=== PATIENT | female | born 1975 | race Caucasian/White ===

== ENCOUNTER 2020-05-22 09:02 | Outpatient (CLI) | payer BC, SELFPAY ==
--- NOTE | 2020-05-22 09:09 | MM_ITS ---
WS: [id number] BILATERAL SCREENING MAMMOGRAM WITH BJORN DISPLACEMENT VIEWS. CAD PERFORMED. HISTORY: SCREENING COMPARISON: 12/21/2018 12/29/2015 Bilateral craniocaudal and mediolateral like views are performed. Bjorn displacement views in CC and MLO projection also performed. Breasts composition: There are scattered areas of fibroglandular density. Prepectoral implants are i ntact. No capsular contraction. The visualized breast tissue remains normal. No suspicious mass or ca [place]cification. MM/[id number] IMPRESSION: BI-RADS: 2-Benign FOLLOW-UP: 1 Year Follow-up
== END 2020-05-22 09:03 | disposition home or self-care (01) ==
LOC: RADSHAW 09:08
PROVIDERS: PCP Internal Medicine; Visit Provider Internal Medicine
DX: Z12.31 Encounter for screening mammogram for malignant neoplasm of breast (principal)
CPT/HCPCS: 77067

== ENCOUNTER 2022-05-31 08:57 | Outpatient (CLI) | payer BC, SELFPAY ==
--- NOTE | 2022-05-31 09:05 | MM_ITS ---
WS: [id number] BILATERAL SCREENING DIGITAL BREAST MAMMOGRAPHY WITH BJORN DISPLACEMENT VIEWS. CAD PERFORMED. HISTORY: SCREENING COMPARISON: 05/22/2020 and 12/21/2018 Bilateral craniocaudal and mediolateral oblique views are performed with tomosynthesis and SM. Bjorn displacement views in CC and MLO projection also performed. Breasts composition: The breasts are heterogeneously dense, which may obscure small masses. Implants are intact. No extravasation or collapse of the implants. No mass or calcification. MM/[id number] IMPRESSION: BI-RADS: 2-Benign FOLLOW-UP: 1 Year Follow-up
== END 2022-05-31 08:58 | disposition home or self-care (01) ==
LOC: RAD 08:59
PROVIDERS: PCP Family Medicine; Visit Provider Family Medicine
DX: Z12.31 Encounter for screening mammogram for malignant neoplasm of breast (principal)
CPT/HCPCS: 77063; 77067

== ENCOUNTER 2024-07-25 09:00 | Outpatient (CLI) | payer BC, SELFPAY ==
--- NOTE | 2024-07-25 09:02 | MM_ITS ---
WS: [id number] BILATERAL SCREENING DIGITAL BREAST MAMMOGRAPHY WITH BJORN DISPLACEMENT VIEWS. CAD PERFORMED. HISTORY: SCREEN COMPARISON: 05/31/2022, 05/22/2020 Bilateral craniocaudal and mediolateral oblique views are performed with tomosynthesis and SM. Bjorn displacement views in CC and MLO projection also performed. Breasts composition: The breasts are extremely dense, which lowers the sensitivity of mammography. Prepectoral implants are intact. No suspicious masses or calcifications. No complications of the impl ants. MM/MM scr BI tomosynthesis [id number] IMPRESSION: BI-RADS: 2 - Benign FOLLOW-UP: 1 Year Follow-up
== END 2024-07-25 09:01 | disposition home or self-care (01) ==
PROVIDERS: PCP Family Medicine; Visit Provider Family Medicine
DX: Z12.31 Encounter for screening mammogram for malignant neoplasm of breast (principal)
CPT/HCPCS: 77063; 77067